=== PATIENT | female | born 1945 | race Caucasian/White ===

== ENCOUNTER → 2020-09-28 | Outpatient (CLI) | payer OTHER ==
[~2020-09-28] MED LIST: ALBU8.5H8 IH; ASPI-728 PO; CLOP-31 PO; FAMO20 PO; FERR-89 PO; FLUT16H IH; IPRAHFA IH; LEVAHFA IH; LEVO125T11 PO; LOVA40TA2 PO; METF1000 PO; METO25 PO; MOME17N NASAL; NITR0.4T50 SL; OMEP20 PO; OXYC-26 PO; PANT-31 PO; SENN8.8S6 PO
[2020-09-28 10:41] VITALS: BP 139/69
== END | disposition home or self-care (01) ==
LOC: SRCNTR 10:30
PROVIDERS: ATTEND Internal Medicine Critical Care Medicine
DX: G47.33 Obstructive sleep apnea (adult) (pediatric) (principal); E03.9 Hypothyroidism, unspecified; I25.10 Atherosclerotic heart disease of native coronary artery without angina pectoris; J44.1 Chronic obstructive pulmonary disease with (acute) exacerbation; E11.9 Type 2 diabetes mellitus without complications
CPT/HCPCS: G0463

== ENCOUNTER → 2020-11-17 | Outpatient (CLI) | payer MEDICARE, OTHER ==
[~2020-11-17] VITALS: Ht 170.2 cm; Wt 87.0 kg
[~2020-11-17] MED LIST changes: -CLOP-31 PO; +CLOP75TA60 PO
[2020-11-17 12:57] VITALS: BP 88/54
== END | disposition home or self-care (01) ==
LOC: SRCNTR 10:29
PROVIDERS: ATTEND Internal Medicine Critical Care Medicine
DX: J44.1 Chronic obstructive pulmonary disease with (acute) exacerbation (principal); E11.9 Type 2 diabetes mellitus without complications; I25.10 Atherosclerotic heart disease of native coronary artery without angina pectoris; E03.9 Hypothyroidism, unspecified; G47.33 Obstructive sleep apnea (adult) (pediatric); J06.9 Acute upper respiratory infection, unspecified
CPT/HCPCS: G0463